=== PATIENT | female | born 1970 | race Caucasian/White ===

== ENCOUNTER 2023-10-27 19:47 | Emergency (ER) | payer OTHER, SELFPAY ==
[2023-10-27] VITALS (30 sets, daily range): BP systolic 88–142; BP diastolic 28–87; PULSE 88–113; RESP 15–26; TEMP 32.5–33.8; O2SAT 94–100
--- NOTE | ~2023-10-27 | CT_ITS ---
EXAMINATION: CTA chest abdomen pelvis DATE: 10/27/2023 21:27 INDICATION: Found down. . TECHNIQUE: Computed tomography (CT) of the chest, abdomen, and pelvis was performed with 100 mL Omnip aque-350 intravenous contrast in the arterial phase. Automated exposure control and iterative reconst ruction technique were employed. The dose-length product was 2011.88 mGy-cm. COMPARISON: None FINDINGS: Initial limited by beam hardening from arm down positioning, motion artifact. CHEST: Thoracic aorta: No significant dilation. No dissection. Mild arch calcification. Lung parenchyma and airways: Significant motion artifact in the lungs. Scattered mild groundglass opa cities and mild septal thickening. Multiple scattered sub-6 mm pulmonary nodules. Anterior right uppe r lobe scar. Thoracic inlet, axillae and chest wall: No thyroid or soft tissue mass. No axillary lymphadenopathy. Mediastinum: No mass or lymphadenopathy. Heart and pericardium: Cardiomegaly. No pericardial effusion.. Coronary artery calcifications: Moderate. Pleura: No effusion or mass. Thoracic bones: No acute osseous finding in the chest. ABDOMEN/PELVIS: Liver: Normal. Biliary/Gallbladder: Cholelithiasis. No bile duct dilation. Pancreas: No duct dilation or pancreatic mass. Mild peripancreatic fat stranding. Spleen: Normal. Adrenals:Indeterminate density 1.9 cm left adrenal lesion. Normal right adrenal. Kidneys: No suspicious mass, obstructing stone, or hydronephrosis. GI tract: Mild distal esophageal and gastric wall edema. Moderate wall edema involving the first and second portions of the duodenum No small or large bowel dilation. The appendix is not confidently vis ualized. Mesentery/Peritoneum: No ascites, mass, or free air. Retroperitoneum: No mass Atherosclerotic abdominal aortic and/or arterial calcifications. No aneurysm , occlusion or dissection. No severe aortic branch vessel stenosis. Pelvis: The urinary bladder is decompressed by a Garcia catheter. Normal ovaries and uterus. Soft Tissues: Fat-containing uncomplicated umbilical hernia. Subcutaneous stranding in the left lower anterior abdominal subcutaneous fat. Abdominopelvic bones: No acute osseous finding in the abdomen/pelvis. IMPRESSION: Mild interstitial edema. Mild esophagitis/gastritis. Moderate duodenitis. Peripancreatic fat stranding as can be seen with acute pancreatitis, correlate with pancreatic labs. Changes may also be reactive to the adjacent duodenal process or vice versa. Left lower anterior abdominal edema or cellulitis/panniculitis. Correlate clinically for signs of inf ection. Multiple subcentimeter pulmonary nodules, likely benign granulomas. If the patient is at high risk, c onsider an optional follow-up low-dose noncontrast CT of the chest in 12 months. 1.9 cm indeterminate density left adrenal nodule, if there is a prior history of cancer, consider non emergent but timely adrenal CT. Otherwise this probably represents a benign finding, consider 12 rani h follow-up adrenal CT. Reviewed, dictated and finalized at location K. IMPRESSION: Mild interstitial edema. Mild esophagitis/gastritis. Moderate duodenitis. Peripancreatic fat stranding as can be seen with acute pancreatitis, correlate with pancreatic labs. Changes may also be reactive to the adjacent duodenal pro cess or vice versa. Left lower anterior abdominal edema or cellulitis/panniculitis. Correlate clini lyndon for signs of infection. Multiple subcentimeter pulmonary nodules, likely benign granulomas. If the gunner ent is at high risk, consider an optional follow-up low-dose noncontrast CT of the chest in 12 months. 1.9 cm indeterminate density left adrenal nodule, if there is a prior history o f
--- NOTE | ~2023-10-27 | XR_ITS ---
EXAMINATION: XR chest 1V portable Exam Date/Time: 10/27/2023 20:23 CDT HISTORY: unresponsive, low bp, high blood sugar Comparison: None. RESULT: Lines, tubes, and devices: None. Lungs and pleura: Leftward rotation. Mild diffuse reticular opacities. Lungs otherwise clear. Cardiomediastinal silhouette: Unremarkable, given degree of rotation. Other: No acute osseous or upper abdominal finding. IMPRESSION: Mild interstitial edema. Reviewed, dictated and finalized at location K. IMPRESSION: Mild interstitial edema.
--- NOTE | ~2023-10-27 | XR_ITS ---
EXAMINATION: XR chest ET placement Exam Date/Time: 10/27/2023 22:25 CDT HISTORY: ETT PLACEMENT Comparison: Same date at 8:26 PM. RESULT: Lines, tubes, and devices: Endotracheal tube terminates 5.6 cm above the gianluca. Subdiaphragmatic NG tube. Lungs and pleura: Mild diffuse reticular opacities with indistinct vessels. Cardiomediastinal silhouette: Stable. Other: No acute osseous or upper abdominal finding. IMPRESSION: Slightly high positioning of the endotracheal tube, consider advancing 1.6 cm. Mild interstitial edema. Reviewed, dictated and finalized at location K.
--- NOTE | ~2023-10-27 | XR_ITS ---
EXAM: XR abdomen gastric tube insert DATE: 10/27/2023 22:36 HISTORY: OG TUBE PLACMENT . COMPARISON: CTA cap, same date. FINDINGS: Radiographic 2, tip likely in the distal gastric body or antrum. Side port in the gastric body. Paucity of bowel gas. No organomegaly. No abnormal abdominal calcification. Multilevel lumbar d egenerative disc disease. IMPRESSION: NG tube positioned within the stomach. Reviewed, dictated and finalized at location K.
--- NOTE | ~2023-10-27 | XR_ITS ---
EXAMINATION: XR chest port-a-cath/central Exam Date/Time: 10/27/2023 22:58 CDT HISTORY: CENTRAL LINE PLACEMENT Comparison: Same date at 10:30 PM. RESULT: Lines, tubes, and devices: Endotracheal tube terminates 5.9 cm above the gianluca. Subdiaphragmatic NG tube. Right IJ central line terminating at the cavoatrial junction. Lungs and pleura: Some improvement in the mild diffuse reticular opacities. Cardiomediastinal silhouette: Stable. Other: No acute osseous or upper abdominal finding. IMPRESSION: Right IJ central line in good position. Endotracheal tube remains slightly high positioned. Somewhat improving lung opacities. Reviewed, dictated and finalized at location K.
--- NOTE | ~2023-10-27 | CT_ITS ---
EXAMINATION: CT brain wo con DATE: 10/27/2023 21:17 INDICATION: Found down . TECHNIQUE: Computed tomography (CT) of the head was performed without intravenous contrast. The mA wa s adjusted according to patient size. Iterative reconstruction technique was employed. The dose-lengt h product was 574.66 mGy-cm. COMPARISON: None. FINDINGS: No acute intracranial hemorrhage or extra-axial fluid collection. No hydrocephalus, mass, or herniation. No acute ischemic infarct. Unremarkable dural venous sinus attenuation. No acute osseous abnormality. Right maxillary air-fluid level, aerated secretions in the right maxillary sinus and the right inferi or frontal sinus, mild mucosal thickening in the bilateral maxillary sinuses, ethmoid sinuses, and ri ght frontal sinus, the remaining aerated spaces are clear. Mild atrophy and moderate chronic white matter change. Atherosclerotic intracranial calcification. 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 Bilateral lens replacements. IMPRESSION: No acute intracranial process. Reviewed, dictated and finalized at location K.
--- NOTE | ~2023-10-27 | CT_ITS ---
EXAMINATION: CT cervical spine wo con DATE: 10/27/2023 21:17 INDICATION: found down TECHNIQUE: Computed tomography (CT) of the cervical spine was performed without intravenous contrast. Automated exposure control and iterative reconstruction technique were employed. The dose-length pro duct was 574.66 mGy-cm. COMPARISON: None. FINDINGS: Vertebral Body Alignment: Intact. Craniocervical and atlantoaxial alignment: Moderate degenerative change. Alignment intact. Osseous structures/fracture: No evidence of a lytic or blastic process in the visualized spine. No e vidence of acute fracture. Unfused posterior C1 arch, a normal variant. Cervical soft tissues: The paraspinal soft tissues planes are maintained. Degenerative changes: Degenerative changes, without severe neural foraminal or central canal narrowin g. IMPRESSION: No acute fracture or traumatic malalignment in the cervical spine. Reviewed, dictated and finalized at location K.
[2023-10-27] MEDS: SODIUM CHLORIDE 0.9% IV 3,000 ML 999 ML IV CONT (20:00)
--- NOTE | 2023-10-27 20:00 | ECG_ITS ---
Test Date: 2023-10-27 20:08:24 Measurements Intervals [place] Rate: 91 P: -2 CO: 181 QRS: 39 QRSD: 108 T: -85 QT: 414 QTc: 510 Interpretive Statements SINUS RHYTHM POSSIBLE LEFT ATRIAL ENLARGEMENT DELAYED PRECORDIAL R/S TRANSITION NONSPECIFIC ST & T-WAVE ABNORMALITY- INF/HIGH LAT LEADS BASELINE ARTIFACT- I, III, AVR, AVL, AVF, V4-V6 BORDERLINE ECG No previous ECG available for comparison Electronically Signed On 10-28-2023 06:26:05 CDT by Silverio Bell D.O.
[2023-10-27 20:22] LABS: Basophils Absolute Auto 0.3 K/mm3 (0.0-0.1); Basophils Percent Auto 0.4 % (0.2-1.2); Eosinophils Absolute Auto 0.1 K/mm3 (0-0.3); Eosinophils Percent Auto 0.2 % (0-4.4); Hematocrit 35.4 % (37.0-47.0); Hemoglobin 8.9 g/dL (12.0-15.0); Immature Granulocyte Absolute 2.02 K/mm3 (0.00-0.031); Immature Granulocyte Percent A 3.5 % (0-0.5); Lymphocytes Absolute Auto 1.15 K/mm3 (0.9-3.2); Mean Corpuscular HGB Conc 25.1 g/dl (32-36); Mean Corpuscular Hemoglobin 17.4 pg (26-34); Mean Corpuscular Volume 69.1 fl (80-100); Mean Platelet Volume 10.7 fl (7.4-10.4); Monocytes Percent Auto 6.9 % (2.6-8.5); Neutrophils Absolute Auto 50.7 K/mm3 (1.3-6.7); Nucleated Red Blood Cells Perc 0.1 % (0.0-0.2); Platelet Count Result 802 k/mm3 (150-375); Red Blood Count 5.12 M/mm3 (4.2-5.4); Red Cell Distribution Width 22.9 % (11.5-14.5)
[2023-10-27 20:24] LABS: Glucose Point of Care > 500 mg/dl (65-105)
[2023-10-27 20:26] LABS: Alveolar/Arterial O2 Gradient 36.8 mmHg; Base Excess ABG -26.5 mEq/l (+/-2.0); Fractional Inspired Oxygen 21 %; HCO3 ABG 4.2 mEq/l (22.0-26.0); Oxygen Content ABG 11.6 %vol (16.0-22.0); Oxygen Saturation ABG 89.6 % (95.0-100.0); Oxyhemoglobin 91.4 % THb (90.0-100.0); PO2 ABG 88.3 mmHg (80.0-100.0); Total Hemoglobin 8.9 g/dL (12.0-18.0); White Blood Count 58.2 K/mm3 (4.5-10.0)
[2023-10-27 20:28] LABS: Lactic Acid Reflex 1.6 mmol/L (0.7-2.0)
[2023-10-27 20:30] LABS: Device ROOM AIR; Modified Allen's Test Pass; PCO2 ABG 20.6 mmHg (35.0-45.0); Site Drawn RIGHT RADIAL; pH ABG 6.928 (7.350-7.450)
[2023-10-27] MEDS: RAPID SEQUENCE INTUBATION KIT 1 EACH (20:30)
[2023-10-27 20:31] LABS: INR 1.5; Prothrombin Time 18.6 Seconds (11.1-14.7)
[2023-10-27 20:32] LABS: Partial Thromboplastin Time 25.1 Seconds (22.3-36.8)
[2023-10-27 20:33] LABS: Ovalocytes 1+; Platelet Estimate Increased (Adequate); Poikilocytosis 1+; Schistocytes None Seen
[2023-10-27 20:36] LABS: Burr Cells 1+; Toxic Granulation Present
[2023-10-27 20:38] LABS: Appearance Urine Clear (Clear); Bacteria Urine None Seen /hpf; Bilirubin Urine Negative (Negative); Blood Urine 2+ (Negative); Color Urine Yellow (Yellow); Glucose Urine UA 3+ mg/dL (Negative); Ketones Urine 3+ mg/dL (Negative); Leukocyte Esterase Ur Negative LEU/UL (Negative); Need Manual Microscopic Reviewed; Nitrate Urine Negative (Negative); Protein Urine 2+ mg/dL (Negative); RBC Urine 0-2 /hpf (0-2); Specific Grav Ur 1.021 (1.001-1.035); Squamous Epithelial Cell Urine Occasional /hpf (Few); WBC Urine 0-5 /hpf (0-3)
[2023-10-27 20:39] LABS: Add Urine Microscopic? YES
[2023-10-27 20:46] LABS: Alanine Aminotransferase 15 U/L (6-35); Albumin Level 3.9 g/dL (3.5-5.1); Alkaline Phosphatase 177 U/L (38-126); Aspartate Amino Transferase 24 U/L (14-36); Bilirubin,Total 0.6 mg/dL (0.2-1.3); Blood Urea Nitrogen 48 mg/dL (7-17); Calcium 9.2 mg/dL (8.4-10.2); Carbon Dioxide < 5 mmol/L (22-30); Chloride 95 mmol/L (98-107); Creatine Kinase 220 U/L (30-135); Estimated CRCL calculation 32 ml/min; Estimated Glomerular Filt Rate 19; Ethanol < 10 mg/dL (<10); Potassium 3.6 mmol/L (3.4-5.0); Sodium 133 mmol/L (137-145)
[2023-10-27 20:51] LABS: Acetaminophen < 10 ug/mL (10-30)
[2023-10-27 20:53] LABS: Magnesium 2.4 mg/dL (1.6-2.3); Troponin I 0.246 ng/mL (0.000-0.034)
[2023-10-27 20:53] LABS: Amphetamine Screen Urine Negative (Negative); Barbiturate Screen Urine Negative (Negative); Benzodiazepines Screen Urine Negative (Negative); Cannabinoid Screen Urine Negative (Negative); Cocaine Screen Urine Negative (Negative); Methadone Screen Urine Negative (Negative); Opiate Screen Urine Negative (Negative); Phencyclidine Screen Urine Negative (Negative)
[2023-10-27 20:57] LABS: Glucose 826 mg/dL (65-110)
[2023-10-27 21:07] LABS: Influenza A QL RT-PCR Negative (Negative); Influenza B QL RT-PCR Negative (Negative); RSV RNA, RT-PCR Negative (Negative); SARS-CoV-2 RNA PCR Positive (Negative)
[2023-10-27 21:22] LABS: Lipase 11720 U/L (23-300)
[2023-10-27 21:33] LABS: NT Pro B Type Natriuretic Pept 4450 pg/mL (19.9-100)
[2023-10-27 21:37] LABS: Hemoglobin A1C > 14.0 % (<5.7)
[2023-10-27] MEDS: NOREPINEPHRINE 8 MG/D5W 250 ML 8 MG/250 ML BAG 9.38 MG IV CONT (22:00)
[2023-10-27 22:05] LABS: Thyroid Stimulating Hormone Reflex 0.925 uIU/mL (0.465-4.68)
--- NOTE | 2023-10-27 22:07 | ED.GENADULT ---
HPI - General Adult General Chief complaint: Altered Mental Status Stated complaint: unresponsive, BS high History of Present Illness HPI narrative: This is a 53-year-old female brought in from EMS after being found unresponsive at home. Last contact was yesterday when she emailed her HR saying that she feeling well and did not come to work. No unanswered worsens. She was found her apartment on the floor. Patient is alert to pain. She cannot contribute to the interview. Related Data Home Medications Medication Instructions Recorded Confirmed amlodipine 10 mg tablet mg 10/27/23 empagliflozin 10 mg tablet mg 10/27/23 (Jardiance) metformin 500 mg tablet mg 10/27/23 semaglutide 3 mg tablet (Rybelsus) mg PO 10/27/23 valsartan 160 tablet 10/27/23 mg-hydrochlorothiazide 25 mg tablet Allergies Allergy/AdvReac Type Severity Reaction Status Date / Time No Known Allergies Allergy Verified 10/27/23 23:38 [facility] Past Medical History Medical History (Updated 10/28/23 @ 00:45 by Jeff Vazquez MD) Essential hypertension Obesity Uncontrolled diabetes mellitus A1c greater than 14 10/27/2023 Surgical History Surgical History (Updated 10/27/23 @ 23:34 by Alis Dow DO) Surgical history unknown Family History Family History (Updated 10/27/23 @ 23:50 by Alis Dow DO) Other Unknown family medical history Social History Social History (Updated 10/27/23 @ 23:51 by Alis Dow DO) Social History: Patient lives alone. The rest of patient's social history is unattainable due to the patient's critical condition. Exam Narrative: APPEARANCE: toxic appearing Head: Dried black material around the patient's mouth and nose EYES: EOMI, NOSE: Atraumatic NECK: Trachea midline RESPIRATORY: Poor respiratory effort with shallow respirations, rhonchorous breath sounds CARDIOVASCULAR: Tachycardic, no peripheral edema ABDOMINAL: Nondistended MUSCULOSKELETAl: No obvious deformities NEURO: Responsive pain Moving 4/4 extremities SKIN:: Cellulitis of the pannus and left labia with ulcerations and necrotizing blisters. Stage I sacral ulcer to the upper back PSYCHIATRIC: NA Course Course Emergency Course: 53-year-old female found unresponsive. Findings were hyperglycemia, and necrotizing soft tissue infection of the pannus. Responsive to pain when she arrived in the ED. Shallow respirations but no hypoxia. Unable to get accurate blood pressure due to body habitus so an arterial line was placed. Blood pressure soft. Started on norepinephrine. Given fluid resuscitation and antibiotics for necrotizing soft tissue infection. Placed on a Uday Hugger for hypothermia. Attempted BiPAP but patient was not alert enough to continue. Patient was intubated. (450/30/40/5) Central line started in the right IJ. Started on insulin and given 2 amps bicarb push for DKA. Potassium repleted. Aleman scan showed pancreatitis, soft tissue infection in the pannus and left labia without necrotizing fasciitis. CT head negative. Laboratory studies signifcant for a white count 58, 8.9 hemoglobin, glucose elevated at 850, potassium 3.6 bicarb undetectable. Lipase 11,000. initial pH 6.9. On re-evaluation patient's vitals have improved. Blood pressure holding. Slightly 110 and breathing with the vent at 30. Blood pressure is 118/54 with a map of 71. Patient will be transferred to the [facility] intensive [facility] unit for further management. Vital Signs Vital signs: Vital Signs Pulse Rate 92 10/27/23 19:48 Respiratory Rate 22 H 10/27/23 19:48 Blood Pressure 96/28 L 10/27/23 19:48 Pulse Oximetry 98 10/27/23 19:48 Oxygen Delivery Room Air 10/27/23 19:48 Temperature 92.8 F L 10/27/23 23:47 Pulse Rate 101 H 10/27/23 23:56 Respiratory Rate 26 H 10/27/23 23:47 Blood Pressure 106/85 10/27/23 23:56 Pulse Oximetry 100 10/28/23 00:00 Oxygen Delivery Mechanical Ventilation
[2023-10-27] MEDS: KETAMINE HCL (*CRX) 500 MG/10 ML VIAL 220 MG IV PUSH (22:16)
[2023-10-27] MEDS: ROCURONIUM BROMIDE 50 MG/5 ML VIAL 100 MG IV PUSH (22:18)
[2023-10-27] MEDS: fentaNYL CITRATE INJ (*CRX) 100 MCG/2 ML VIAL IV PUSH (22:45)
[2023-10-27] MEDS: FENTANYL 2,500MCG/NS250ML(*CRX 2,500 MCG/250 ML BAG 10 MCG IV CONT (22:46)
--- NOTE | 2023-10-27 22:48 | PM.IMHP ---
H&P: HPI History of Present Illness Date/Time: 10/27/23 22:48 Chief Complaint: Found on the floor unresponsive Review of Systems Review of Systems: ROS unobtainable: Yes unobtainable due to endotracheal tube PMFSH Past Medical History Medical History (Updated 10/27/23 @ 22:52 by Alis Dow DO) Essential hypertension Obesity Uncontrolled diabetes mellitus A1c greater than 14 10/27/2023 Meds Home Medications and Allergies Home Medications Medication Instructions Recorded Confirmed Type amlodipine 10 mg tablet mg 10/27/23 History empagliflozin 10 mg tablet mg 10/27/23 History (Jardiance) metformin 500 mg tablet mg 10/27/23 History semaglutide 3 mg tablet (Rybelsus) mg PO 10/27/23 History valsartan 160 tablet 10/27/23 History mg-hydrochlorothiazide 25 mg tablet Vital Signs Vital Signs - 24 hr 10/27/23 19:48 10/27/23 21:22 10/27/23 22:30 Pulse Rate 92 90 106 H Respiratory Rate 22 H 25 H Blood Pressure 96/28 L Pulse Oximetry 98 100 100 Oxygen Delivery Room Air BiPAP Mechanical Ventilation Fraction of Inspired Oxygen 40 H&P: Results Labs Labs: Short CBC 10/27/23 Range/Units 20:12 WBC 58.2 H* (4.5-10.0) K/mm3 Hgb 8.9 L (12.0-15.0) g/dL Hct 35.4 L (37.0-47.0) % Plt Count 802 H (150-375) k/mm3 BMP 10/27/23 20:12 Sodium 133 L Potassium 3.6 Chloride 95 L Carbon Dioxide < 5 L BUN 48 H Creatinine 2.60 H Glucose 826 H* Calcium 9.2 Cardiac Enzymes 10/27/23 10/27/23 Range/Units 20:11 20:12 Total Creatine Kinase 220 H (30-135) U/L Troponin I 0.246 H* (0.000-0.034) ng/mL Liver Function 10/27/23 Range/Units 20:12 Total Bilirubin 0.6 (0.2-1.3) mg/dL AST 24 (14-36) U/L ALT 15 (6-35) U/L Alkaline Phosphatase 177 H (38-126) U/L Albumin 3.9 (3.5-5.1) g/dL Urine 10/27/23 Range/Units 20:14 Urine Color Yellow (Yellow) Urine Appearance Clear (Clear) Urine pH 5.0 (5.0-9.0) Ur Specific [place] 1.021 (1.001-1.035) Urine Protein 2+ H (Negative) mg/dL Urine Glucose (UA) 3+ H (Negative) mg/dL Assessment and Plan Assessment and plan (1) Uncontrolled diabetes mellitus: Status: Acute (2) DKA, type 2, not at goal: Code(s): E11.10 - Type 2 diabetes mellitus with ketoacidosis without coma Status: Acute (3) COVID: Code(s): U07.1 - COVID-19 Status: Acute (4) Anemia: Code(s): D64.9 - Anemia, unspecified Status: Acute (5) Septic shock: Code(s): A41.9 - Sepsis, unspecified organism; R65.21 - Severe sepsis with septic shock Status: Acute (6) Pancreatitis: Code(s): K85.90 - Acute pancreatitis without necrosis or infection, unspecified Status: Acute (7) Acute hypoxic respiratory failure: Code(s): J96.01 - Acute respiratory failure with hypoxia Status: Acute (8) Acute renal failure: Code(s): N17.9 - Acute kidney failure, unspecified Status: Acute (9) Metabolic acidosis, increased anion gap: Code(s): E87.29 - Other acidosis Status: Acute
[2023-10-27] MEDS: PIPERACILLN/TAZ 3.375GM/NS50ML 3.375 GM/50 ML BAG IVPB (23:20)
[2023-10-27] MEDS: INSULIN HUMAN REGULAR (*BKC) 100 UNITS in SODIUM CHLORIDE 0.9% IV 99 ML 11.6 UNITS IV CONT (23:25)
[2023-10-27] MEDS: MIDAZOLAM 100MG/NS 100ML(*CRX) 100 MG/100 ML BAG IV CONT (23:26)
[2023-10-27] MEDS: SODIUM BICARBONATE 8.4% 50 MEQ/50 ML SYRINGE 100 MEQ IV PUSH (23:32)
--- NOTE | 2023-10-27 23:35 | PM.IMCN ---
Assessment and Plan Assessment and plan (1) Necrotizing fasciitis: Code(s): M72.6 - Necrotizing fasciitis Status: Acute (2) Septic shock: Code(s): A41.9 - Sepsis, unspecified organism; R65.21 - Severe sepsis with septic shock Status: Acute (3) Acute hypoxic respiratory failure: Code(s): J96.01 - Acute respiratory failure with hypoxia Status: Acute (4) DKA, type 2, not at goal: Code(s): E11.10 - Type 2 diabetes mellitus with ketoacidosis without coma Status: Acute (5) Metabolic acidosis, increased anion gap: Code(s): E87.29 - Other acidosis Status: Acute (6) Acute renal failure: Qualifiers: Acute renal failure type: unspecified Qualified Code(s): N17.9 - Acute kidney failure, unspecified Code(s): N17.9 - Acute kidney failure, unspecified Status: Acute (7) Pancreatitis: Qualifiers: Chronicity: acute Pancreatitis type: unspecified pancreatitis type Acute pancreatitis complication: no infection or necrosis Qualified Code(s): K85.90 - Acute pancreatitis without necrosis or infection, unspecified Code(s): K85.90 - Acute pancreatitis without necrosis or infection, unspecified Status: Acute (8) Anemia: Qualifiers: Anemia type: unspecified type Qualified Code(s): D64.9 - Anemia, unspecified Code(s): D64.9 - Anemia, unspecified Status: Acute (9) COVID: Code(s): U07.1 - COVID-19 Status: Acute (10) Uncontrolled diabetes mellitus: Qualifiers: Diabetes mellitus type: type 2 Glycemic state: with hyperglycemia Qualified Code(s): E11.65 - Type 2 diabetes mellitus with hyperglycemia Status: Acute (11) Noncompliance with medication regimen: Code(s): Z91.148 - Patient's other noncompliance with medication regimen for other reason Status: Acute Plan Patient presented with septic shock. Imaging demonstrated area of cellulitis. Patient's LRiNEC score was 9. I went down to evaluate patient in the ER a does concerned patient was high risk for necrotizing fasciitis. Patient wass re-evaluated by the ER provider and myself. The patient had had a area of dark appeared to be necrotic tissue on the left lower pannus but it had acutely developed blister formation compared to prior exam. Patient also had area of was consistent of wet gangrene on the left labia. I suspect patient initially probably had an infection of the labia that is progressed and is now tunneling up into the area of the pannus she has associated skin changes through that area. Her exam is consistent with necrotizing fasciitis and is clinically unstable for management at our facility. Patient will require transfer to tertiary care. Patient was started on Zosyn and vancomycin. I recommend the addition of clindamycin. Patient was appropriately fluid resuscitated in the ER with 30 mL/kilos bolus. She remained hypotensive in is now on Levophed. The patient also has concomitant DKA in is been started on insulin drip. Patient had acute hypoxic respiratory failure was intubated and remains on sedation. 45 minute spent in critical care activities Due to a high probability of clinically significant, life threatening deterioration, the patient required my highest level of preparedness to intervene emergently and I personally spent this critical care time directly and personally managing the patient. This critical care time included obtaining a history; examining the patient; pulse oximetry; ordering and review of studies; arranging urgent treatment with development of a management plan; evaluation of patient's response to treatment; frequent reassessment; and discussions with other providers. It was exclusive of separately billable procedures and treating other patients and teaching time. Please see Assessment and Plan section and the rest of the note for further information on patient assessment and treatme
[2023-10-27 23:41] LABS: Alveolar/Arterial O2 Gradient 114.9 mmHg; Fractional Inspired Oxygen 40 %; HCO3 ABG 16.7 mEq/l (22.0-26.0); Oxygen Content ABG 12.3 %vol (16.0-22.0); Oxygen Saturation ABG 96.3 % (95.0-100.0); Oxyhemoglobin 96.6 % THb (90.0-100.0); PCO2 ABG 52.3 mmHg (35.0-45.0); PO2 ABG 110.2 mmHg (80.0-100.0); PO2 FiO2 Ratio Arterial Blood 2.75 %; Total Hemoglobin 8.9 g/dL (12.0-18.0)
[2023-10-27 23:42] LABS: Modified Allen's Test Pass; Site Drawn ARTLINE; pH ABG 7.123 (7.350-7.450)
[2023-10-27 23:43] LABS: Arterial Blood Gas PEEP 5 cmH2O; Arterial Blood Gas Tidal Volume 400 ml; Arterial Blood Gas Vent Mode CMV; Arterial Blood Gas Ventilator rate 26 /MIN; Device VENTILATOR
[2023-10-28] VITALS: O2SAT 100
[2023-10-28] MEDS: CLINDAMYCIN 900 MG/D5W 50 ML 900 MG/50 ML PIGGYBACK 50 MG IVPB (00:38)
[2023-10-28 01:04] LABS: Blood Urea Nitrogen 51 mg/dL (7-17); Calcium 8.4 mg/dL (8.4-10.2); Carbon Dioxide < 5 mmol/L (22-30); Chloride 102 mmol/L (98-107); Estimated CRCL calculation 33 ml/min; Estimated Glomerular Filt Rate 20; Glucose 730 mg/dL (65-110); Magnesium 2.1 mg/dL (1.6-2.3); Potassium 2.8 mmol/L (3.4-5.0); Sodium 137 mmol/L (137-145)
[2023-10-28 01:06] LABS: Troponin I 0.281 ng/mL (0.000-0.034)
[2023-10-28 01:13] VITALS: BP 110/52; PULSE 107; RESP 15; O2SAT 100
[2023-10-28] MEDS: VANCOMYCIN 1,250 MG/NS 250 ML 1,250 MG/250 ML BAG 166.67 MG IVPB ×2 (01:37)
[2023-10-28] MEDS: KCL 40 MEQ/WATER 100 ML 100 ML 25 ML IVPB (01:40)
[2023-10-28] MEDS: POTASSIUM CHLORIDE 20 MEQ PACKET (FOR LIQUID) 40 MEQ FEED TUBE (01:40)
--- NOTE | 2023-10-28 02:23 | PC.NURSE ---
Pt transferred with all IV drips on jun still running. Report was called to RN at [facility] @[id number].
[2023-10-28 02:28] LABS: Glucose Point of Care > 500 mg/dl (65-105)
[2023-10-28 02:28] LABS: Glucose Point of Care > 500 mg/dl (65-105)
== END 2023-10-28 02:56 | disposition short-term general hospital (02) ==
PROVIDERS: Emergency Provider Emergency Medicine
DX: U07.1 COVID-19 (principal); A41.9 Sepsis, unspecified organism; R65.21 Severe sepsis with septic shock; N17.9 Acute kidney failure, unspecified; J96.01 Acute respiratory failure with hypoxia; K85.90 Acute pancreatitis without necrosis or infection, unspecified; E11.10 Type 2 diabetes mellitus with ketoacidosis without coma; E11.65 Type 2 diabetes mellitus with hyperglycemia; M72.6 Necrotizing fasciitis; D64.9 Anemia, unspecified; Z91.148 Patient's other noncompliance with medication regimen for other reason; I10 Essential (primary) hypertension; E66.9 Obesity, unspecified; Z68.36 Body mass index [BMI] 36.0-36.9, adult; Z79.84 Long term (current) use of oral hypoglycemic drugs; Z79.899 Other long term (current) drug therapy; J81.1 Chronic pulmonary edema; K20.90 Esophagitis, unspecified without bleeding; K29.70 Gastritis, unspecified, without bleeding; K29.80 Duodenitis without bleeding; R91.8 Other nonspecific abnormal finding of lung field; E27.8 Other specified disorders of adrenal gland; R94.31 Abnormal electrocardiogram [ECG] [EKG]
CPT/HCPCS: 31500; 36415; 36556; 36600; 70450; 71045; 71275; 72125; 74174; 80048; 80053; 80307; 81001; 82550; 82805; 82948; 83036; 83605; 83690; 83735; 83880; 84100; 84443; 84484; 85025; 85055; 85610; 85730; 87040; 87637; 93005; 94002; 94660; 96365; 96366; 96367; 96368; 96375; 99291; A9270; C1751; J1815; J2250; J2543; J3010; J3370; J3480; J7030; Q9967